=== PATIENT | male | born 1965 | race Two or more races ===

== ENCOUNTER 2019-05-02 08:51 | Emergency (ER) | payer SELFPAY ==
[~2019-05-02] VITALS: Ht 180.3 cm; Wt 104.8 kg
[2019-05-02 09:12] VITALS: BP 159/93
== END 2019-05-02 10:18 ==
LOC: ED 09:50
DX: L03.211 Cellulitis of face (principal); I10 Essential (primary) hypertension
CPT/HCPCS: 99283